=== PATIENT | female | born 1975 | race Caucasian/White ===

== ENCOUNTER → 2017-04-26 | Outpatient (CLI) | payer BC ==
[~2017-04-26] MED LIST: ELAVIL GENERIC25 MG PO; INDERAL 20MG. T20 MG PO; SYNTHROID 0.00.05 MG PO; VICODIN 5/500 T1 TAB PO
--- NOTE | 2017-04-30 16:36 | RADIOLOGY REPORT PS360 ---
DIG MAMM-SCREEN NIC W/CAD CAD Screening COMPARISON: Digital mammograms 02/16/2016 and 6 month follow-up mammogram right breast 08/15/2016 and digital mammograms 08/09/2015 INDICATION: There is a history of breast cancer in patient's maternal aunts x2 TECHNIQUE: Standard CC and MLO images were obtained. R2 CAD reviewed. FINDINGS: Moderate diffuse fibroglandular densities are seen in central portions of both breasts. Previously seen nodular densities right breast, are not definitely seen on today's study. There is no new or suspicious lesion in either breast and there are no suspicious microcalcifications. Stable small nodes in both axilla. IMPRESSION: Fibrofatty parenchyma with no suspicious lesion seen recommend yearly follow-up BI-RADS CATEGORY: 1_Negative RECOMMENDED FOLLOWUP: 12M 12 MONTH FOLLOW-UP (A letter has been sent to the patient regarding results of the study.)
== END ==
LOC: RAD 09:59
DX: Z12.31 Encounter for screening mammogram for malignant neoplasm of breast (principal)
CPT/HCPCS: G0202

== ENCOUNTER 2017-08-15 00:11 | Emergency (ER) | payer BC ==
[~2017-08-15] VITALS: Ht 152.4 cm; Wt 72.6 kg
[2017-08-15] MEDS ORDERED: AMOXICILLIN 50500 MG PO (00:24)
[2017-08-15] MEDS ORDERED: FLONASE 50 MCG16 GM (00:24)
[2017-08-15 00:30] LABS: LYMPH % 7.8 % (10-50.0)
--- OUTSIDE RECORDS SUMMARY | 2017-08-15 00:34 | External Medical Summary Rpt | CCD ---
Author Author , CALVIN SIMPSON Address Unknown Phone [email or web address] Care Team Providers Care Temple Marker Name Role Phone TRISTAN GARCIA MD, Unavailable Unavailable TRISTAN GARCIA MD Purpose Continuity of Care Document - 05-28-2013 through 2016 Problems Code Diagnosis DOS Provider Status 346.90 346.90 05-28-2013 [facility] W/O INTRACT MGRN W/O STATUS MIGRAINOSUS Allergies, Adverse Reactions, Alerts Type Drug Allergy Adverse Reaction to Substance Substance Reaction Severity SULFA (sulfonamide) I-HIVES Intermediate Clarithromycin I-RASH Intermediate Medications Na ND Rx Da Fi Fi Am Da Di Ph RX Ph St me C No te ll ll ou ys ag ar # ys at rm s nt no ma ic us Or Da si cy ia de te s n re d SO 00 09 0 No DI 40 -1 UM 97 9- Lo 98 20 ng CH 30 13 er LO 9 RI Ac DE ti ve 0. 9% SO JOHN TI ON AL 00 09 0 No OM 64 -1 ET 11 9- Lo ROMO 49 20 ng ZI 53 13 er NE 5 Ac 25 ti ve MG /M L AM PU L IM 00 09 0 No IT 17 -1 RE 30 9- Lo X 44 20 ng 6 90 13 er MG 2 /0 Ac .5 ti ve ML AL Sa 63 09 0 No li 80 -1 ne 70 9- Lo 10 20 ng Fl 07 13 er us 5 h Ac 10 ti ML ve Sy ri ng e ON 00 09 0 No DA 64 -1 NS 16 9- Lo ET 08 20 ng RO 02 13 er N 5 HC Ac L ti 4 ve MG /2 ML AL Sa 63 09 0 No li 80 -1 ne 70 9- Lo 10 20 ng Fl 07 13 er us 5 h Ac 10 ti ML ve Sy ri ng e OX 00 09 0 No YC 40 -1 OD 60 9- Lo ON 51 20 ng E- 26 13 er AC 2 ET Ac AM ti IN ve OP HE N 5- 32 5 Vital Signs 05-28-2013 09:55 Name Value Interpretat Reference Comment ion Range BP 76 mm[Hg] Diastolic BP Systolic 134 mm[Hg] Heart 78 /min Rate/Pulse O2% 99 % Respiratory 20 /min Rate 05-28-2013 08:30 Name Value Interpretat Reference Comment ion Range BP 62 mm[Hg] Diastolic BP Systolic 160 mm[Hg] Heart 70 /min Rate/Pulse O2% 99 % Respiratory 20 /min Rate Results Labs Lab Lab Date Result Refere Interp Status Commen Order Detail nces retati t Range on COMPREHENSIVE METABOLIC PANEL (05-28-2013 08:15) Glucose 103 74-106 complet 013 mg/dL ed Bld-mCn 08:15 c BUN 8 mg/dL 7-18 complet Bld-mCn 013 ed c 08:15 Creat 0.6 0.6-1.0 complet SerPl-m 013 mg/dL ed Cnc 08:15 ESTIMAT 140 50-200 complet ED 013 ML/MIN ed CREATIN 08:15 INE CLEARAN CE GFR 111 59- complet (ESTIMA 013 ML/MIN ed RUPERT) 08:15 Sodium 136 136-145 complet SerPl-s 013 mmoL/L ed Cnc 08:15 Potassi 4.3 3.5-5.1 complet um 013 mmoL/L ed SerPl-s 08:15 Cnc Chlorid 101 98-107 complet e 013 mmoL/L ed SerPl-s 08:15 Cnc CO2 29 21.0-32 complet SerPl-s 013 mmoL/L .0 ed Cnc 08:15 Calcium 8.9 8.5-10. complet 013 mg/dL 1 ed SerPl-m 08:15 Cnc Prot 7.9 6.4-8.2 complet SerPl-m 013 gm/dL ed Cnc 08:15 Albumin 4.2 3.4-5.0 complet 013 gm/dL ed SerPl-m 08:15 Cnc Globuli 09-19-2 3.7 1.3-3.2 complet n 013 gm/dL ed Ser-mCn 08:15 c Albumin 05-28-2 1.1 UNK 1.1-1.8 complet /Glob 013 ed SerPl-m 08:15 Rto Bilirub 05-28-2 0.3 0.2-1.0 complet 013 mg/dL ed SerPl-m 08:15 Cnc AST 05-28- 15 U/L 15-37 complet SerPl-c 013 ed Cnc 08:15 ALT 34 U/L 30-65 complet SerPl-c 013 ed Cnc 08:15 ALP 96 U/L 50-136 complet SerPl-c 013 ed Cnc 08:15 Amylase SerPl-cCnc (05-28-2013 08:15) Amylase 05-28-2 43 U/L 25-115 complet 013 ed SerPl-c 08:15 Cnc LIPASE (05-28-2013 08:15) LIPASE 05-28- 135 U/L 73-393 complet 013 ed 08:15 CBC with AUTO DIFF (05-28-2013 08:15) WBC # 05-28-2 7.6 4.8-10. complet Bld 013 K/MM3 8 ed Auto 08:15 RBC # 05-28-2 4.66 4.2-5.4 complet Bld 013 M/mm3 ed Auto 08:15 Hgb 05-28-2 14.7 12.2-16 complet Bld-mCn 013 g/dL .2 ed c 08:15 Hct Fr 05-28- 43.9 % 37.0-47 complet Bld 013 .0 ed 08:15 MCV RBC 05-28-2 94.2 fl 82.2-97 complet 013 .8 ed 08:15 MCH RBC 05-28-2 31.6 pg 27-31.2 complet Qn 013 ed Auto 08:15 MEAN 05-28-2 33.5 31.8-35 complet CORPUSC 013 g/dl .4 ed ULAR 08:15 HGB CONC RDW RBC 05-28-2 14.0 % 11.5-17 complet Auto 013 .5 ed 08:15 Platele 05-28- 373 142-424 complet t Bld 013 K/mm3 ed Ql 08:15 Manual MEAN 09-19-2 7.5 fl 7.4-10. complet PLATELE 013 4 ed T 08:15 VOLUME Granulo -19-2 70.0 % 37.0-80 complet cytes 013 .0 ed Fr Bld 08:15 Auto LYMPH % -19-2 22.1 % 10-50.0 complet 013 ed 08:15 Monocyt 09-19-2 6.0 % 1.7-9.3 complet es Fr 013 ed Bld 08:15 Auto Eosinop -19-2 1.1 % 0.1-12. complet hil Fr 013 0 ed Bld 08:15 Auto Basophi -19-2 0.8 % 0.1-2.0 complet ls Fr 013 ed Bld 08:15 Auto Granulo -19-2 5.3 1.8-7.8 complet cytes # 013 K/mm3 ed Bld 08:15 Auto Lymphoc 19-2 1.7 0.7-4.5 complet ytes Fr 013 K/mm3 ed Bld 08:15 Auto Monocyt -19-2 0.5 0.1-1.0 complet es # 013 K/mm3 ed Bld 08:15 Auto Eosinop -19-2 0.1 0.0-0.4 complet hil # 013 K/mm3 ed Bld 08:15 Auto Basophi 09-19-2 0.1 0-0.2 complet ls # 013 K/MM3 ed Bld 08:15 Auto Encounters Encounter Start End Date Code Location Performer Type Date Emergency MAILE GARCIA (ER) 3 08:26 3 09:55 [facility] TRISTAN
--- OUTSIDE RECORDS SUMMARY | 2017-08-15 00:34 | External Medical Summary Rpt | CCD ---
Author Author , CALVIN SIMPSON Address Unknown Phone [email or web address] Care Team Providers Care Logging Contractor Name Role Phone TRISTAN GARCIA MD, Unavailable Unavailable TRISTAN GARCIA MD Purpose Continuity of Care Document - 05-28-2013 through 2016 Problems Code Diagnosis DOS Provider Status 346.90 346.90 05-28-2013 [facility] W/O INTRACT MGRN W/O STATUS MIGRAINOSUS [...] ve 0. 9% SO JOHN TI ON SD 00 09 0 No OM 64 -1 [...] MAILE GARCIA (ER) 3 08:26 3 09:55 [facility] TRISTAN
--- OUTSIDE RECORDS SUMMARY | 2017-08-15 00:35 | External Medical Summary Rpt | CCD ---
Demographics Preferred Language Thai Marital Status Unknown Orthodoxy Affiliation Unknown Race Unknown Ethnic Group Unknown Author Author , CALVIN SIMPSON Address Unknown Phone Immunization No patient found.
--- OUTSIDE RECORDS SUMMARY | 2017-08-15 00:35 | External Medical Summary Rpt | CCD ---
Author Author [facility] Organization [facility] Address Unknown Phone Unavailable Purpose Continuity of Care Document - through 2016
--- OUTSIDE RECORDS SUMMARY | 2017-08-15 00:35 | External Medical Summary Rpt | CCD ---
Demographics Preferred Language Wallisian Marital Status Unknown Zoroastrian Affiliation Unknown Race Unknown Ethnic Group Unknown Author Author , CALVIN SIMPSON Address Unknown Phone Immunization No patient found.
--- NOTE | 2017-08-15 00:56 | Emergency Room Report ---
History of Present Illness Time Seen by 0022 Presenting Problem in Triage Pt arrived:Walked Presenting Problem:REPORTS HEADACHE, VOMITING X 1 1/2 HOURS.DIARRHEA, DENIES ANY ABD PAIN. 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 N Clinical Suspician of Infection? N Mental Status: 1 - Regular (Normal Baseline) Sepsis Risk:Low Sepsis Risk Have you (or family members/close friends) recently traveled outside the [place]? N If Yes, where/when: Have you had exposure to infectious disease within the past month? N TB? Other? Specify: Source patient, RN notes reviewed, family, old records Exam Limitations no limitations Comment pt with progressive bernal with hx of migraines and has sinus pain this week - saw pcp and on abx Cardiac Chest Pain Chest pain indicative of cardiac No Timing/Duration this evening Severity moderate ALLERGIES Coded Allergies: Sulfa (Sulfonamide Antibiotics) (Intermediate, I-HIVES 08/15/17) clarithromycin (Intermediate, I-RASH 08/15/17) Home Medications Reported Medications Levothyroxine Sodium (Synthroid 0.05MG) 0.05 MG PO DAILY Propranolol Hcl (Inderal 20MG. Tablet) 20 MG PO QHS Amoxicillin Trihydrate (Amoxicillin 500MG) 500 MG PO BID #60 Fluticasone Propionate (Flonase 50 Mcg Nasal [place]) 1 SPRAY NA BID #16 History Medical History General CAD? No Angina: No CO: No Hypertension? No Hyperlipidemia? No CHF? No DVT? No PE? No COPD? No Asthma? No Anemia? No GERD? No Gastric ulcers? No GI Bleed? No Hernia? No Thyroid Problems? No Hypothyroidism? No CVA? No Seizures? No Diabetes? No Renal Insuffiency? No End Stage Renal Disease? No UTI? No Stones? No BPH? No GB Disease: Yes Nephritic Syndrome? No Asplenia? No Hepatitis? No Sickle Cell Disease? No Arthritis? No Migraines? Yes Cataracts? No Glaucoma? No MRSA? No HIV? No TB? No Anxiety? No Depression? No Cancer? No More? 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 Respiratory denies cough Cardiovascular denies chest pain, denies syncope Gastrointestinal nausea, vomiting Genitourinary denies: dysuria, frequency. Musculoskeletal denies neck pain Skin denies rash Psychiatric/Neurological see HPI, headache, denies seizure Physical Exam Vital Signs Vital Signs Date Time Temp Pulse Resp B/P Pulse O2 O2 Flow FiO2 Ox Delivery Rate 08/15 0207 79 14 111/63 97 08/15 0118 14 08/15 0033 14 08/15 0017 97.6 75 18 145/75 97 - WBC >12,000 or <4,000 or 10% bands? 2 or more SIRS Criteria Met? B/P:111/63 MAP:98 Creatinine >2.0? UA output<0.5ml/kg/hr for 2 hrs? Platelet count >100,000? Lactate >2.0mmol/1? INR >1.2 or PTT > than 60 sec? Evidence of Organ Dysfunction? Provider documented clinical suspician of infection? N Sepsis Criteria Count: 0 Sepsis Risk: Low Sepsis Risk General Appearance no apparent distress Eye Exam - bilateral eye PERRL, bilateral eye EOMI Ear, Nose, Throat sinus pain/drainage, nasal congestion Neck supple Respiratory Status No: respiratory distress. Lung Sounds bilateral: lungs clear. Cardiovascular regular rate/rhythm, no murmur Peripheral Pulses Pulses normal Yes Gastrointestinal soft Extremities normal inspection Strength 4 Upper Ext (L), 4 Upper Ext (R), 4 Lower Ext (L), 4 Lower Ext (R) Neurologic alert, prison officer II-XII nml as tested, no motor/sensory deficits Reflexes Reflexes normal Yes Mental status normal mood/affect Skin intact Medical Decision Making LABS/Meds/Orders Pt receiving controlled substance in ED? No Results/Orders Laboratory Tests 08/15/17 0025: Sodium 137, Potassium 3.5, Chloride 101, Carbon Dioxide 28, BUN 6 L, Creatinine 0.7, Estimated Creat Clear 118, Estimated GFR (MDRD) 91, Glucose 130 H, Calcium 9.0, Total Bilirubin 0.5, AST 13 L, ALT 22, Alkaline Phosphatase 87, Total Protein 7.8, Albumin 4.0, Globulin 3.8 H, Albumin/Globulin Ratio 1.1, Amylase 39, Lipase 121, WBC 13.1 H, RBC 4.49, Hgb 14.0, Hct 41.0, MCV 91.3, RDW 12.7, Plt Count 301, MPV 7.5, Gran % 87.7 H, Gran # 11.5 H, Total Counted 100, Lymphocytes % 7.8 L, Monocytes % 3.6, Eosinophils % 0.6, Basophils % 0.3, Neutrophils 88 H, Lymphocytes (Manual) 7 L, Lymphocytes # 1.0, Monocytes ( Manual) 3, Monocytes # 0.5, Eosinophils # 0.1, Eosinophils # (Manual) 1, Basophils # 0.0, Basophils # (Manual) 1, Platelet Estimate NORMAL, Anisocytosis 1+, PUBS MCHC 34.2, MCH 31.3 H Current Medication Orders Sig/Sara Start time Last Medication Dose Route Stop Time Status Admin Methylprednisolone 0 .STK-MED ONE 08/15 202 DC Sodium Succinate .ROUTE Methylprednisolone 125 MG ONCE ONE 08/15 200 DC 08/15 Sodium Succinate IV 08/15 201 0203 Ceftriaxone Sodium 1 GM ONCE ONE 08/15 115 DC 08/15 Sodium Chloride 50 ML IV 08/15 144 0116 Morphine Sulfate 4 MG ONCE ONE 08/15 115 DC 08/15 IV 08/15 116 0118 Promethazine HCl 12.5 MG ONCE ONE 08/15 115 DC 08/15 IV 08/15 116 0117 Promethazine HCl 0 .STK-MED ONE 08/15 115 DC .ROUTE Sodium Chloride 1,000 ML .Q1H1M 08/15 115 DC 08/15 IV 08/15 0215 0030 Sodium Chloride 10 ML PRN PRN 08/15 115 AC IV 08/16 102 Sodium Chloride 25 ML ONCE ONE 08/15 115 DC 08/15 IV 08/15 129 0120 Sodium Chloride 25 ML .STK-MED ONE 08/15 115 DC IV Morphine Sulfate 0 .STK-MED ONE 12/07 0114 DC .ROUTE Sodium Chloride 100 ML .STK-MED ONE 08/15 011 DC IV Ceftriaxone Sodium 0 .STK-MED ONE 08/15 011 DC .ROUTE Ceftriaxone Sodium 0 .STK-MED ONE 08/15 111 DC IV Ketorolac 30 MG ONCE ONE 08/15 0030 DC 08/15 Tromethamine IV 08/15 003 0033 Ketorolac 0 .STK-MED ONE 08/15 003 DC Tromethamine .ROUTE Ondansetron HCl 4 MG ONCE ONE 08/15 003 DC 08/15 IV 08/15 003 0031 Ondansetron HCl 0 .STK-MED ONE 08/15 003 DC .ROUTE Sodium Chloride 10 ML PRN PRN 08/15 003 AC 08/15 IV 08/16 002 0030 Sodium Chloride 1,000 ML .STK-MED ONE 08/15 0028 DC IV Orders Procedure Date/time Status DIET-NOTHING BY MOUTH 08/[address] SINUS (MAX-FACIAL W/O CONT) 08/[address] HEAD W/O CONTRAST 08/[address] SCAN REQ 08/15 0110 Complete IV SALINE LOCK 08/15 0027 Active LIPASE 08/15 0027 Complete CBC WITH AUTO DIFF 08/15 002 Complete CHEM 12 PROFILE 08/15 0027 Complete AMYLASE 08/15 0027 Complete DIFFERENTIAL-WBC 08/15 0025 Complete XRAY/CT/US XRAY/CT/US CT head, sinus CT interpretation by discussed w/radiologist Time results known: 0229 CT Results abnormal (sinus dis) Departure Departure Time of Disposition 0230 Disposition DC Home or Self Care(routine) Clinical Impression Primary Impression: Headache Qualifiers: Headache type: unspecified Headache chronicity pattern: acute headache Intractability: not intractable Qualified Code: R51 - Headache Secondary Impressions: Sinusitis Qualifiers: Sinusitis location: unspecified location Chronicity: acute Recurrence: non-recurrent Qualified Code: J01.90 - Acute sinusitis, unspecified Condition STABLE Referrals Sukumar Keller MD (Family) Patient Instructions DI for Sinusitis Additional Instructions use meds and see pcp for follow up Discharge Counseling Counseled pt/family regarding diagnosis, test results, follow up needs ED Critical Care Critical Care No at 2025
[2017-08-15 02:09] LABS: NEUTROPHILS 88 % (42-76)
[2017-08-15 02:40] VITALS: BP 105/78
--- NOTE | 2017-08-15 06:34 | RADIOLOGY REPORT PS360 ---
CT HEAD W/O CONTRAST HISTORY: Severe headache with nausea and vomiting HEADACHE ORDERING PHYSICIAN: Maria De Jesus Acuña MD PATIENT AGE: 42 years COMPARISON: 05/28/2013 TECHNIQUE: Axial images obtained without contrast. Brain and bone windows reviewed. FINDINGS: No midline shift, mass effect, intracranial hemorrhage, hydrocephalus, or extra-axial fluid collection is evident. There is a cavum septum lucidum is a normal variant The calvarium has an unremarkable appearance. No mastoid effusion. The mild mucosal thickening ethmoid sinuses. IMPRESSION: No acute intracranial findings. Mild ethmoid sinus
--- NOTE | 2017-08-15 07:05 | RADIOLOGY REPORT PS360 ---
CT SINUS (MAX-FACIAL W/O CONT) CLINICAL INDICATION: Severe headache with nausea and vomiting HEADACHE ORDERING PHYSICIAN: Maria De Jesus Acuañ MD PATIENT AGE: 42 years COMPARISON: None TECHNIQUE:Axial, sagittal, and coronal images are generated and reviewed without contrast COMPARISON: None FINDINGS:Small air-fluid level is present in the left maxillary sinus with mild mucosal thickening of the maxillary, ethmoid, and sphenoid sinuses. The frontal sinuses are unremarkable. No mastoid effusion. The ostiomeatal units are patent. A small amount fluid is present in the left mastoid sinus. There is mild rightward nasal septal deviation posteriorly TMJs are unremarkable. Scattered small lymph nodes are present in the neck. The orbits are unremarkable. IMPRESSION: Mild paranasal sinus disease and small left mastoid effusion
== END 2017-08-15 02:41 | disposition home or self-care (01) ==
LOC: ER 00:11
PROVIDERS: Emergency Medicine
DX: R51 Headache (principal); J01.90 Acute sinusitis, unspecified
CPT/HCPCS: J2405